=== PATIENT | male | born 1960 | race Caucasian/White ===

== ENCOUNTER → 2017-10-26 01:41 | Outpatient (CLI) | payer OTHER, SELFPAY ==
--- NOTE | 2017-10-26 09:31 | DI.REPORT_ITS ---
SYMPTOM/DIAGNOSIS: INGUINAL HERNIA, LEFT K40.90. LT GROIN PAIN, CONCERN FOR HERNIA SOFT TISSUE ULTRASOUND: 10/26 Soft tissue ultrasound was performed in the left inguinal region to evaluate the possibility of clinically suspected inguinal hernia. No inguinal hernia identified by ultrasound criteria. If there is a high clinical suspicion of hernia additional evaluation with CT could be considered.
== END ==
PROVIDERS: PCP Specialist/Technologist Athletic Trainer; Visit Provider Specialist/Technologist Athletic Trainer
DX: R10.32 Left lower quadrant pain (principal); K40.90 Unilateral inguinal hernia, without obstruction or gangrene, not specified as recurrent
CPT/HCPCS: 76857

== ENCOUNTER 2018-01-22 06:41 | Outpatient (CLI) | payer OTHER, SELFPAY ==
--- NOTE | 2018-01-22 06:45 | DI.US_ITS ---
SYMPTOMS/DIAGNOSIS: LEFT TESTICLE PAIN, ? SPERMATOCELE, N50.812 SCROTAL ULTRASOUND: The examination reveals a right testicle measuring 3.7 x 3.1 x 2.1 cm. There is normal arterial and venous blood flow and homogeneous echogenicity is noted in the testicle. There is normal color flow. The testicle is acoustically homogeneous. The right epididymis measures 1.6 x 2.5 x 1.3 cm, is acoustically homogeneous with normal color flow. The left testicle measures 3.2 x 3.0 x 2.3 cm. There is normal color flow and the testicle is acoustically homogeneous. The left epididymal head measures 1.7 x 2.8 x 1.1 cm and is homogeneous with normal color flow. Question multiple bilateral epididymal head cysts, the largest on the left side measuring 2.2 x 1.2 x 2.3 cm. In addition, there are multiple bilateral extratesticular calcifications, which likely represent scrotal pearls. The largest of these measures 7 mm in the right scrotal sac. Bilateral dilatation of the rete testes is demonstrated. There is a question regarding small bilateral hydroceles, left greater than right, the left hydrocele measuring 1.6 x 1.1 x 2.3 cm. SUMMARY: No evidence of testicular torsion. No evidence of a spermatocele. Please see the above discussion.
== END 2018-01-22 07:01 ==
PROVIDERS: PCP Specialist/Technologist Athletic Trainer; Visit Provider Nurse Practitioner Gerontology
DX: N50.812 Left testicular pain (principal); N50.3 Cyst of epididymis
CPT/HCPCS: 76870

== ENCOUNTER 2018-02-21 11:13 | Day surgery (SDC) | payer OTHER, SELFPAY ==
[2018-02-21] VITALS (7 sets, daily range): BP systolic 129–170; BP diastolic 90–99; PULSE 51–60; RESP 14–19; TEMP 36–37; O2SAT 95–98
[2018-02-21] MEDS: Lactated Ringers 1,000 ML 80 ML IV ×2 (12:07→13:20)
[2018-02-21] MEDS: Sulfameth/Trimeth DS TAB 1 TAB PO (12:07)
[2018-02-21] MEDS: Bupivacaine 0.25% Pres-Free 30 ML VIAL (13:27)
--- NOTE | 2018-02-21 13:35 | W.PM.DSUDISC ---
Discharge Plan Disposition Patient Disposition: HOME Condition: Stable Discharge Details Reason For Visit: spermatocele Attending Provider: Mark Domínguez Primary Care Provider: Salbador Hurtado Home Meds and New Rx's Prescriptions: No Action losartan 25 mg tablet 25 mg PO DAILY RF: 0 Discharge Instructions Additional Instructions: No straining/lifting over 10 - 20 pounds for 72 hours Fluff dressing with scrotal support May remove dressing in AM 12/ and shower/bathe but continue with scrotal support for 48 to 72 hours Ice pack to scrotum (bag of frozen peas works well) on 30 min off 30 min while awake for next 48 to 72 hours F/U appt to see me or LUNCHROOM WORKER in my office 3 to 4 weeks Activity:: see additional instructions Remove Dressings/Wound Care:: 24 hours Shower/Bathe:: 24 hours Diet:: As Tolerated Discharge Orders Discharge Orders: Discharge Order (Routine); Ordered 02/21/18 Ordered By: Mark Domínguez DS: Diagnosis Discharge Diagnosis (1) Spermatocele of epididymis, single: Status: Acute
--- NOTE | 2018-02-21 13:41 | PDOC.DSDIS_ITS ---
Discharge Plan Disposition Patient Disposition: HOME Condition: Stable Discharge Details Reason For Visit: spermatocele Attending Provider: Mark oDmínguez Primary Care Provider: Salbador Hurtado Home Meds and New Rx's Prescriptions: No Action losartan 25 mg tablet 25 mg PO DAILY RF: 0 Discharge Instructions Additional Instructions: No straining/lifting over 10 - 20 pounds for 72 hours Fluff dressing with scrotal support May remove dressing in AM 12/ and shower/bathe but continue with scrotal support for 48 to 72 hours Ice pack to scrotum (bag of frozen peas works well) on 30 min off 30 min while awake for next 48 to 72 hours F/U appt to see me or RN PRIVATE DUTY in my office 3 to 4 weeks Activity:: see additional instructions Remove Dressings/Wound Care:: 24 hours Shower/Bathe:: 24 hours Diet:: As Tolerated Discharge Orders Discharge Orders: Discharge Order (Routine); Ordered 02/21/18 Ordered By: Mark Domínguez DS: Diagnosis Discharge Diagnosis (1) Spermatocele of epididymis, single: Status: Acute
--- NOTE | 2018-02-21 18:11 | ROE_ITS ---
DATE OF OPERATION: February 21, 2018 PREOPERATIVE DIAGNOSIS: Left spermatocele. POSTOPERATIVE DIAGNOSIS: Left spermatocele. PROCEDURE: Left spermatocelectomy. SURGEON: Mark Domínguez M.D. ANESTHESIA: General. ESTIMATED BLOOD LOSS: Minimal. COMPLICATIONS: None. SPECIMENS: None. HISTORY: This is a 57-year-old gentleman who has a history of a scrotal mass. In fact, he has bilat eral scrotal masses but only the left side causes discomfort. He was evaluated with an ultrasound wh ich demonstrated these are cystic lesions attached to the epididymis. He presents for left-sided spe rmatocelectomy. OPERATIVE REPORT: The patient was brought to the Operating Room on 02/21/18. After successful induc tion of general anesthesia, he was placed in the supine position. His genitalia was prepped and drap ed. A right transverse scrotal incision was made along the direction of the rugae. The dartos muscle was then divided using a Bovie. The testis was delivered through the incision. There appeared to be a small hydrocele surrounding the testis. The tunica vaginalis was opened, expo sing the testis and the epididymis. At the head of the epididymis there was a 2 x 3 cm cystic lesion consistent with the spermatocele. W e dissected the spermatocele free from the epididymis and transected it at its attachment. Once this was accomplished, we cauterized the base of the epididymis and closed the adventitia back o uma the defect. Once hemostasis was obtained, we injected 0.25% Marcaine without epinephrine into the spermatic cord to help with a cord block. The testis was delivered back within the left hemiscrotum. The dartos mu scle was closed over top using a segment of running #4-0 Chromic. The skin was closed with simple in terrupted #4-0 Chromic sutures as well. A Fluff dressing was then applied. The patient tolerated the procedure well with no complications. cc: Salbador Hurtado PA-C
== END 2018-02-21 15:08 | disposition home or self-care (01) ==
PROVIDERS: PCP Specialist/Technologist Athletic Trainer; Visit Provider Urology
PROC: (CPT 54840; principal; 2018-02-21 14:00)
DX: N43.41 Spermatocele of epididymis, single (principal); N43.3 Hydrocele, unspecified
CPT/HCPCS: 54840; J2250; J3010

== ENCOUNTER 2018-07-16 15:52 | Outpatient (REF) | payer OTHER, SELFPAY ==
[2018-07-16 22:00] LABS: Anion Gap 9.2 mmol/L (3-11); BUN 14 mg/dL (7-18); CO2 24.8 mmol/L (21.0-32.0); CREATININE 1.22 mg/dL (0.70-1.30); Calcium 9.4 mg/dL (8.5-10.1); Chloride 103 mmol/L (98-107); Glucose 88 mg/dL (70-100); Potassium 4.2 mmol/L (3.5-5.1); Sodium 137 mmol/L (136-145)
== END 2018-07-16 16:12 ==
LOC: NCHCN 15:52
PROVIDERS: PCP Specialist/Technologist Athletic Trainer; Visit Provider Specialist/Technologist Athletic Trainer
DX: I10 Essential (primary) hypertension (principal)
CPT/HCPCS: 80048

== ENCOUNTER 2019-06-18 09:06 | Outpatient (REF) | payer OTHER, SELFPAY ==
[2019-06-18 20:45] LABS: Anion Gap 9.6 mmol/L (3-11); BUN 20 mg/dL (7-18); CO2 25.4 mmol/L (21.0-32.0); CREATININE 1.38 mg/dL (0.70-1.30); Calcium 9.3 mg/dL (8.5-10.1); Calculated LDL 157 mg/dL (<100); Chloride 103 mmol/L (98-107); Cholesterol 224 mg/dL (<200); Estimated GFR 52.92 (mL/min/1.73m2); Glucose 97 mg/dL (74-106); HDL Cholesterol 48 mg/dL (40-60); Potassium 4.7 mmol/L (3.5-5.1); Sodium 138 mmol/L (136-145); Triglyceride 97 mg/dL (<150)
== END 2019-06-18 09:26 ==
LOC: NCHCN 09:06
PROVIDERS: PCP Specialist/Technologist Athletic Trainer; Visit Provider Nurse Practitioner Family
DX: Z00.00 Encounter for general adult medical examination without abnormal findings (principal); I10 Essential (primary) hypertension
CPT/HCPCS: 80048; 80061

== ENCOUNTER 2019-08-20 15:20 | Outpatient (REF) | payer OTHER, SELFPAY ==
[2019-08-20 20:10] LABS: ALT 57 U/L (16-63); AST 28 U/L (15-37); HDL Cholesterol 48 mg/dL (40-60); LDL CHOLESTEROL 68 mg/dL (<100)
[2019-08-20 20:27] LABS: Creatine Kinase 119 U/L (39-308)
== END 2019-08-20 15:40 ==
LOC: NCHCN 15:20
PROVIDERS: PCP Nurse Practitioner Family; Visit Provider Nurse Practitioner Family
DX: E78.5 Hyperlipidemia, unspecified (principal)
CPT/HCPCS: 82550; 83721; 83718; 84450; 84460

== ENCOUNTER 2019-12-15 16:25 | Outpatient (REF) | payer OTHER, SELFPAY ==
[2019-12-15 19:50] LABS: ALT 50 U/L (16-63); AST 29 U/L (15-37); BUN 26 mg/dL (7-18); CREATININE 1.18 mg/dL (0.70-1.30); Calcium 9.3 mg/dL (8.5-10.1); Chloride 104 mmol/L (98-107); Glucose 113 mg/dL (74-106); HDL Cholesterol 60 mg/dL (40-60); LDL CHOLESTEROL 80 mg/dL (<100); Potassium 4.4 mmol/L (3.5-5.1); Sodium 140 mmol/L (136-145)
[2019-12-15 20:15] LABS: Creatine Kinase 282 U/L (39-308)
== END 2019-12-15 16:45 ==
LOC: NCHCN 16:25
PROVIDERS: PCP Nurse Practitioner Family; Visit Provider Nurse Practitioner Family
DX: Z00.00 Encounter for general adult medical examination without abnormal findings (principal); I10 Essential (primary) hypertension; E78.5 Hyperlipidemia, unspecified
CPT/HCPCS: 80048; 82550; 83721; 83718; 84450; 84460

== ENCOUNTER 2020-06-21 13:36 | Outpatient (REF) | payer OTHER, SELFPAY ==
[2020-06-21 15:15] LABS: Anion Gap 7.9 mmol/L (3-11); BUN 22 mg/dL (7-18); CO2 23.1 mmol/L (21.0-32.0); CREATININE 1.2 mg/dL (0.70-1.30); Calcium 9.2 mg/dL (8.5-10.1); Calculated LDL 101 mg/dL (<100); Chloride 107 mmol/L (98-107); Cholesterol 166 mg/dL (<200); Glucose 98 mg/dL (74-106); HDL Cholesterol 48 mg/dL (40-60); Potassium 4.5 mmol/L (3.5-5.1); Sodium 138 mmol/L (136-145); Triglyceride 86 mg/dL (<150)
== END 2020-06-21 13:37 | disposition home or self-care (01) ==
LOC: NCHCN 13:36
PROVIDERS: PCP Nurse Practitioner Family; Visit Provider Nurse Practitioner Family
DX: E78.5 Hyperlipidemia, unspecified (principal); I10 Essential (primary) hypertension
CPT/HCPCS: 80048; 80061

== ENCOUNTER 2021-01-03 11:12 | Outpatient (REF) | payer OTHER, SELFPAY ==
[2021-01-03 16:31] LABS: Anion Gap 7.7 mmol/L (3-11); BUN 19 mg/dL (7-18); CO2 28.3 mmol/L (21.0-32.0); CREATININE 1.2 mg/dL (0.70-1.30); Calcium 9.6 mg/dL (8.5-10.1); Chloride 106 mmol/L (98-107); Glucose 102 mg/dL (74-106); Magnesium 2.3 mg/dL (1.8-2.4); Potassium 4.8 mmol/L (3.5-5.1); Sodium 142 mmol/L (136-145); TSH 1.39 uIU/mL (0.36-3.74)
== END 2021-01-03 11:13 | disposition home or self-care (01) ==
LOC: NCHCN 11:12
PROVIDERS: PCP Nurse Practitioner Family; Visit Provider Nurse Practitioner Family
DX: I10 Essential (primary) hypertension (principal); K40.90 Unilateral inguinal hernia, without obstruction or gangrene, not specified as recurrent; R00.1 Bradycardia, unspecified
CPT/HCPCS: 80048; 83735; 84443

== ENCOUNTER 2021-01-03 11:43 | Outpatient (RCR) | payer OTHER, SELFPAY ==
--- NOTE | 2021-01-03 11:45 | HOLTER_ITS ---
APPROVED REPORT Conclusion This was a 48-hour Holter monitor reportedly ordered for bradycardia Predominant rhythm was sinus with an average heart rate of 59. Minimum was 41, maximum 124 There were rare ventricular ectopic beats. There were 2 ventricular triplets, very rare ventricular couplets There were very rare atrial premature beats There was one self-limited atrial run which lasted 5 beats There was no atrial fibrillation, no high-grade AV block, no pauses greater than 3 seconds There were no apparent patient symptoms
== END 2021-02-01 23:59 | disposition home or self-care (01) ==
LOC: RT 11:43
PROVIDERS: PCP Nurse Practitioner Family; Visit Provider Nurse Practitioner Family
DX: R00.1 Bradycardia, unspecified (principal)
CPT/HCPCS: 93225; 93226

== ENCOUNTER 2021-02-07 02:58 | Outpatient (CLI) | payer OTHER, SELFPAY ==
[2021-02-07 10:38] LABS: Source Nasal/Nares
[2021-02-07 17:06] LABS: COVID-19 PCR Negative (Negative)
== END 2021-02-07 02:59 | disposition home or self-care (01) ==
LOC: LBO 02:58
PROVIDERS: PCP Nurse Practitioner Family; Visit Provider Surgery
DX: Z20.822 Contact with and (suspected) exposure to COVID-19 (principal)
CPT/HCPCS: 87635

== ENCOUNTER 2021-02-09 06:15 | Day surgery (SDC) | payer OTHER, SELFPAY ==
[2021-02-09] VITALS (8 sets, daily range): BP systolic 88–133; BP diastolic 50–98; PULSE 54–62; RESP 13–16; TEMP 36.1–37; O2SAT 96–99; BMI 25.7
--- NOTE | 2021-02-09 06:32 | HPE_ITS ---
Date of service: 02/09/21 Time of Service: 06:32 Assessment and Plan Assessment and plan (1) Left inguinal hernia: Status: Acute Assessment and plan: Mr. Paez is a pleasant 60-year-old gentleman here t tavares to discuss a left inguinal hernia repair with mesh. We used a pamphlet with pictures to go over the procedure as well as the complications. We discussed postoperative restrictions and need for light duty at work if possible. I recommend taking at least 1 week off after surgery if possible. We discussed a nerve block for pain control. Risks, benefits and complications have been reviewed. Complications include but are not limited to bleeding, infection, injury to vas, vessels and nerves, injury to bowel and adverse reaction to medications. Questions were entertained and answered to their satisfaction and they wished to proceed. Proceed with left inguinal hernia repair with mesh History of Present Illness Narrative: Mr. Paez is a pleasant 60-year-old gentleman who is here today to discuss left inguinal hernia repair. He tells me that about 4 years ago he had some pain in the left inguinal area after doing some lifting. He felt that maybe he just had pulled some muscles as it did eventually go away. The pain contract came and went for the next 4 years. A year ago he had some increase in pain after lifting and again thought that maybe he just had pulled a muscle. Over the last month he has started to see swelling which goes away when he lays down or sits down. His left inguinal area feels sore at the end of the day. His job requires him to stand on a concrete floor for hours at a time. He did have surgery to his left testicle to have a spermatocele removed which did help with some of the discomfort that he was feeling in the testicle itself. He has not had any changes in bowel habits or nausea or vomiting. He had a right inguinal hernia repair as a child. He was approximately 5 years old at the time. His past medical history significant for tension and anemia which are both well controlled on medication. He has no history of MIs, strokes or any other cardiac history. No changes in his health since I last saw him. Review of Systems Cardiovascular Cardiovascular: Denies chest pain, Denies chest pain at rest, Denies irregular heart rhythm, Denies dyspnea and Denies dyspnea on exertion Respiratory Respiratory: Denies cough, Denies dyspnea and Denies dyspnea on exertion Gastrointestinal Gastrointestinal: Reports as per HPI Genitourinary Genitourinary: Denies dysuria, Denies urinary incontinence and Denies urinary urgency Endocrine Endocrine: Reports system reviewed and no additional complaints, except as documented Hematologic/Lymphatic Hematologic/Lymphatic: Denies easy bruising and Denies lymphadenopathy [facility] Active Problem List (Updated 02/09/21 @ 06:34 by Shayla Smith MD) Muscle strain (Acute) Left inguinal hernia (Acute) Medical History (Updated 02/09/21 @ 06:34 by Shayla Smith MD) Bradycardia Hyperlipidemia Hypertension Situational anxiety Spermatocele of epididymis, single s/p surgery Testicular pain Surgical History History of testicular surgery removal of left speramtocele S/P right inguinal hernia repair at age 5- no mesh Family History Brother Cancer lung cancer at age 21 Paternal Grandfather Lung cancer Maternal Grandfather Lung cancer Father Myocardial infarction Mother Stroke Social History Smoking/Tobacco Use Status: Never Smoking risk assessment performed?: Yes Alcohol Intake: current Alcohol Intake frequency: 0-2 drinks per day Drug use: Occasionally Substance use type: marijuana Household members: none Do you feel safe at home: Yes Additional Social history: lives alone Meds Allergies and Home Medications Allergies Allergy/AdvReac Type Severity Reaction Status Date / Time No Known Allergies Allergy Verified 02/07/21 14:29 Home Medications Medication Instructions Recorded Confirmed Type losartan 25 mg tablet 25 mg PO DAILY 01/21/18 02/07/21 History atorvastatin 20 mg tablet 20 mg PO DAILY 12/28/20 02/07/21 History multivitamin 1 tab PO DAILY 12/28/20 02/07/21 History Exam Const General: healthy appearing and comfortable Resp Effort & Inspection: normal respiratory effort Auscultation: clear to auscultation bilaterally Cardio Rate: regular rate Rhythm: regular rhythm Heart Sounds: no click, no gallops and no murmurs
--- NOTE | 2021-02-09 06:35 | W.PM.OP ---
Date of service: 02/09/21 Time of Service: 08:14 Operative Note Operative Note DATE OF PROCEDURE: 02/09/21 PRE-OP DIAGNOSIS: Left inguinal hernia POST-OP DIAGNOSIS: same (indirect) PROCEDURE: Left inguinal hernia repair with mesh SURGEON: Shayla Smith INSPECTOR PAWNS[employer]OP DETAIL: Montse Dong ANESTHESIA TYPE: General LMA/ETT (Yesy North CRNA) and Primary Nerve Block Refer to Anesthesia Record PATHOLOGY: none sent COMPLICATIONS: None Patient was transported to: PACU Patient's condition: stable Implants: Bard Mesh: LOT- [id number] REF- [id number] 2025-06-30 Indications: Mr. Paez is a pleasant 60-year-old gentleman here today to discuss a left inguinal hernia repair with mesh. We used a pamphlet with pictures to go over the procedure as well as the complications. We discussed postoperative restrictions and need for light duty at work if possible. I recommend taking at least 1 week off after surgery if possible. We discussed a nerve block for pain control. Risks, benefits and complications have been reviewed. Complications include but are not limited to bleeding, infection, injury to vas, vessels and nerves, injury to bowel and adverse reaction to medications. Questions were entertained and answered to their satisfaction and they wished to proceed. Proceed with left inguinal hernia repair with mesh Findings: Indirect hernia and small cord lipoma Procedure Description: After informed concent was obtained the patient was taken to the operating room and placed in a supine position. Monitors and SCDs were applied and a timeout was done. The patient's name, date of , procedure type, procedure site, allergies to medications, preoperative antibiotic, and DVT prophylaxis were all reviewed. Fire risk was assessed. Next anesthesia did a tap block on the left side under ultrasound guidance. Please see their separate dictation. Once anesthesia was done the abdomen was prepped and draped in a sterile surgical fashion. 0.25% Marcaine mixed with exparel was injected into the dermis in the left lower quadrant. An incision was made with a 10 blade in the left lower quadrant. Dissection was done with cautery through the subcutaneous tissues and Mila's fascia down to the external oblique fascia. The external ring was identified and the external oblique fascia was opened sharply through the external ring. The cut fascia was grasped with hemostats the cord structures were identified and a Xavier drain was placed around them. The ilioinguinal nerve was identified and cut. The cremasteric muscle was dissected away from the cord structures using both cautery and blunt dissection. A small hernia sac was identified and removed from the cord structures using blunt dissection. The hernia sac was suture ligated and amputated. The remnant was pushed back into the peritoneum. A flat piece of mesh was then attached to the lacunar ligament using a 2-0 Prolene double armed suture. The mesh was secured laterally and medially with a 2-0 Prolene, with a running suture. The tails of the mesh were wrapped around the cord structures effectively cinching down the internal ring. Once the mesh was secured the tissues were irrigated with some normal saline. No bleeding was identified. The external oblique fascia was reapproximated using 2-0 Vicryl running suture. The Mila's fascia was reapproximated using interrupted 3-0 Vicryl. The dermis was reapproximated with a running 4-0 Vicryl. The skin was cleaned and dried and skin affix was applied. The patient was woken up and taken back to recovery in stable condition. There were no immediate complications. Sponge, instrument and needle counts were correct at the end of the case x2.
--- NOTE | 2021-02-09 06:36 | PDOC.DSDIS_ITS ---
Discharge Plan Disposition Patient Disposition: HOME Condition: Good Discharge Details Reason For Visit: left inguinal hernia Attending Provider: Shayla Smith Primary Care Provider: Juliana Moise Home Meds and New Rx's Prescriptions: Continued losartan 25 mg tablet 25 mg PO DAILY RF: 0 atorvastatin 20 mg tablet 20 mg PO DAILY RF: 0 multivitamin Tablet 1 tab PO DAILY RF: 0 Discharge Instructions Additional Instructions: Activity at Home after surgery: 1. Make sure you walk outside at least 4 times per day 2. You should be able to climb a flight of stairs 3. No driving while in pain or taking pain medications 4. No strenuous activity or heavy lifting for 4 weeks Diet, Nutrition, & wound healin. Avoid alcohol until after you are recovered from your surgery 2. Make sure to eat plenty of lean protein (meat, fish, eggs, cottage cheese, beans) 3. Eat a variety of fruits and vegetables. Eat plenty of high fiber foods to avoid constipation. 4. Drink plenty of liquids to stay hydrated and avoid constipation Pain Medications: 1. Tylenol 650mg every 6 hours as needed and Ibuprofen 600 mg every 6 hours as needed. You may alternate between the 2 medications every 3 hours 2. If a narcotic has been prescribed take as directed only for breakthrough pain For Constipation: 1. Take Milk of Magnesia or MiraLax as needed for constipation Other: 1. You may shower daily. Do not scrub the incisions 2. Do not soak the incisions for 1 week 3. You may alternate ice and heat as needed for pain and swelling Wound Care: 1. Keep the incisions clean and dry Please call our office if you develop: 1. Fevers >101.5 2. Nausea or Vomiting 3. Worsening pain 4. Redness and thick discharge from the wounds If after hours please call the Hospital at and ask to speak to the on-call surgeon Stand Alone Forms: Anesthesia Discharge Inst., [place] (U) Referrals: Shayla Smith MD [ [facility] STAFF PHYSICIAN] - 02/22/21 8:15 am Activity:: see above Diet:: As Tolerated Discharge Orders Discharge Orders: Discharge Order (Routine); Ordered 02/09/21 Ordered By: Shayla Smith DS: Diagnosis Discharge Diagnosis (1) Left inguinal hernia: Status: Acute
--- NOTE | 2021-02-09 06:40 | W.ANESPRE ---
General Info Date of Service Date Performed: 02/09/21 Height: 5 ft 8 in Weight: 76.714 kg Body Mass Index (BMI): 25.7 Surgical Procedure: Operation Date: 02/09/21 07:40 Proposed Procedures Side Surgeon p Herniorrhaphy Inguinal Left Shayla Smith MD Meds Allergies and Home Medications Allergies Allergy/AdvReac Type Severity Reaction Status Date / Time No Known Allergies Allergy Verified 02/09/21 06:42 Home Medication Medication Instructions Recorded losartan 25 mg tablet 25 mg PO DAILY 01/21/18 atorvastatin 20 mg tablet 20 mg PO DAILY 12/28/20 multivitamin 1 tab PO DAILY 12/28/20 Current Visit Medications: Current Medications Generic Name Dose Route Start Last Admin Trade Name Freq PRN Reason Stop Dose Admin Acetaminophen 1,000 mg 02/09/21 06:00 Acetaminophen 500 Mg Tab PO 03/10/21 23:59 PREOP SAMM Celecoxib 200 mg 02/09/21 06:00 Celecoxib 200 Mg Cap PO 03/10/21 23:59 PREOP SAMM Gabapentin 600 mg 02/09/21 06:00 Gabapentin 300 Mg Cap PO 03/10/21 23:59 PREOP SAMM Ringer's Solution 1,000 mls @ 80 mls/hr 02/09/21 06:00 IV 03/10/21 23:59 INFUSION SAMM Cefazolin Sodium/Dextrose 2 gm in 50 mls @ 100 mls/hr 02/09/21 06:00 Ancef Duplex IVPB 03/10/21 23:59 PREOP SAMM Ondansetron HCl 4 mg/ Sodium 52 mls @ 200 mls/hr 02/09/21 06:37 Chloride IVPB Q6H PRN PRN IV Miscellaneous Supplies 1 each 02/09/21 06:00 Iv Access IV 03/10/21 23:59 DIRECTED SAMM Sodium Chloride 0 ml 02/09/21 06:00 Normal Saline Flush 10 Ml Syr IV 03/10/21 23:59 PRN PRN Sodium Chloride 0 ml 02/09/21 06:00 Normal Saline 10 Ml Vial IJ 03/10/21 23:59 DIRECTED PRN Sterile Water 0 ml 02/09/21 06:00 Water,Injection,Sterile 10 Ml Vial IJ 03/10/21 23:59 DIRECTED PRN Tramadol HCl 50 mg 02/09/21 06:37 Tramadol 50 Mg Tab PO Q6H PRN PRN Pain PFSH Active Problems Active Problems: Problem Status Onset Code Muscle strain T14.8XXA Left inguinal hernia K40.90 Medical History Active Problem List Muscle strain (Acute) Left inguinal hernia (Acute) Medical History Bradycardia Hyperlipidemia Hypertension Situational anxiety Spermatocele of epididymis, single s/p surgery Testicular pain Surgical History Surgical History History of testicular surgery removal of left speramtocele S/P right inguinal hernia repair at age 5- no mesh Tobacco Smoking/Tobacco Use Status: Never Alcohol Alcohol Intake: current Alcohol intake frequency: 0-2 drinks per day Substance Use Substance use: Occasionally Substance use type: marijuana Vital Signs and Lab Results Vital Signs Comment Vital Signs Comment:: Most Recent Vital Signs Temp Pulse Resp BP Pulse Ox 37.0 C 58 L 16 133/98 H 96 02/09/21 06:34 02/09/21 06:34 02/09/21 06:34 02/09/21 06:34 02/09/21 06:34 Lab Results Blood Type / Crossmatch: No Data to Display Complete Blood Count: No Data to Display Complete Metabolic Panel: No Data to Display Liver Function Panel: No Data to Display Coagulation Panel: No Data to Display Cardiac Panel: No Data to Display Arterial Blood Gas: No Data to Display Venous Blood Gas: No Data to Display Pancreas Panel: No Data to Display Thyroid Panel: No Data to Display Infectious Disease: Coronavirus (COVID-19)(PCR) Negative (Negative) 02/07/21 09:07 02/07/21 Coronavirus 2019 Source Nasal/Nares 02/07/21 09:07 02/07/21 Blood Cultures: No Data to Display Toxicology Panel: No Data to Display Anesthesia Assessment and Plan Anesthesia History Personal History: No History of Anesthesia Complications Family History: No Family History of Anesthesia Complications Exercise Tolerance Exercise Tolerance: Metabolic Equivalents>4 Pertinent Negatives Pertinent Negatives: No Symptoms of GERD, No Major Cardiovascular Symptoms or Complaints, No Major Pulmonary Symptoms or Complaints and No History of CVA/TIA Cardiac & Pulmonary Exam Cardiac Exam: Normal S1/S2 Heart Sounds Pulmonary Exam: Clear Bilateral Breath Sounds Implantable Cardiac Device Does patient have a Pacemaker or an ICD?: No Airway Exam Known Difficult Airway: No Mallampati Class: 2 Mouth Opening: Normal (> 3cm) Thyromental Distance: Greater than 3 cm Facial Hair: Full Little Neck Range of Motion: Full ROM Neck Circumference: Normal Teeth Condition: Normal Dentition and Loose or Chipped Airway Comments: #11 chipped, #34 broken ASA Classification ASA Score: ASA 2 Emergency Case?: No NPO Status NPO Status: NPO Clears >2 hours, Solids >8 hours Anesthesia Plan Resuscitation Status: Full Code Anesthesia Technique: General Anesthesia Airway Planned: LMA Pain Management: Surgeon and patient request nerve block Monitors Used: Standard Monitors
[2021-02-09] MEDS: Acetaminophen 500 MG TAB 1000 MG PO (06:50)
[2021-02-09] MEDS: Gabapentin 300 MG CAP 600 MG PO (06:50)
[2021-02-09] MEDS: Celecoxib 200 MG CAP PO (06:50)
[2021-02-09] MEDS: Lactated Ringers 1,000 ML 80 ML IV (06:59)
[2021-02-09] MEDS: ceFAZolin 2 GM/50 ML BAG IVPB (07:28)
[2021-02-09] MEDS: Bupivacaine LIPOSOME/PF 133 MG/10 ML VIAL IJ (07:45)
[2021-02-09] MEDS: Bupivacaine 0.25% Pres-Free 30 ML VIAL (07:45)
--- NOTE | 2021-02-09 07:50 | W.ANESNERVE ---
Nerve Block Single Injection Procedure Date and Time Date Performed: 02/09/21 Procedure Start: 07:34 Location Where Procedure Performed Procedure Location: Operating Room Procedure Stop: 07:40 Reason Performed: Postoperative Analgesia Requesting Provider: Shayla Smith Timeout Performed Timeout Performed: Yes Monitoring Used ECG, Blood Pressure, SpO2, ETCO2 and See EMR for corresponding vital signs Sterility Sterility: Hand Hygiene, Surgical Cap, Surgical Mask, Sterile Gloves and Chlorhexidine Sedation Given During Procedure Sedation Given (Indicate Dose Given): No Sedation given Patient Mental Status Patient Mental Status: Performed under general anesthesia Nerve Block 1st Nerve Block: Laterality: Left Block Type: TAP Unilateral Needle / Catheter Used: 100mm SonoPlex II Local Anesthetic Bolus (Indicate Dose Given): Injected in 3-5ml increments after negative blood aspiration, Bupivacaine 0.25% Dose:: 20 ml and Exparel Dose:: 10 ml Additives (Indicate Dose Given): None Ultrasound: Sterile probe cover and gel used Ultrasound Image Saved?: Yes Nerve Stimulator: Not Used Paresthesia: None Procedure Tolerated: No Complications Procedure Outcome: Successful Performed By: Re Kim Supervised By: Jacinta North
--- NOTE | 2021-02-09 09:36 | W.ANESPOSTOP ---
Postoperative Evaluation Date, Time and Location Date Performed: 02/09/21 Time Performed: 09:36 Patient Location: Day Surgery Unit Vital Signs Most Recent Imported Vital Signs: Most Recent Vital Signs Temp Pulse Resp BP Pulse Ox 36.5 C 55 L 16 121/90 98 02/09/21 09:22 02/09/21 09:22 02/09/21 09:22 02/09/21 09:22 02/09/21 09:22 Pain Score Most Recent Pain Score: Most Recent Pain Score Pain Level 3 02/09/21 09:22 Assessment Mental Status: Arousable with meaningful communication Airway and Respiratory Function: Patent airway with normal (patient baseline) respiratory exam Cardiovascular Function: Hemodynamically Stable Hydration Status: Adequately Hydrated Nausea & Vomiting: No Nausea or Vomiting Pain: Pain is tolerable per patient Peripheral Nerve Block: Regional nerve block not resolved at time of post operative discharge
== END 2021-02-09 10:36 | disposition home or self-care (01) ==
PROVIDERS: PCP Nurse Practitioner Family; Visit Provider Surgery
PROC: (CPT 49505; principal; 2021-02-09 07:30)
DX: K40.90 Unilateral inguinal hernia, without obstruction or gangrene, not specified as recurrent (principal); I10 Essential (primary) hypertension; E78.5 Hyperlipidemia, unspecified
CPT/HCPCS: 49505; 76942; C1781; J0690; J1100; J1885; J2001; J2250; J2405; J2704

== ENCOUNTER 2021-02-18 08:38 | Outpatient (CLI) | payer OTHER, SELFPAY ==
--- NOTE | 2021-02-18 08:30 | RT.EKG_ITS ---
APPROVED REPORT Exam: Resting ECG Reason for Exam: bradycardia Patient Location: O HR:54 bpm ECG Measurements Heart Rate 54 AXIS LA 186 P -4 QRSd 83 QRS -10 QT 419 T 50 QTc 398 Conclusion Sinus rhythm...normal P axis, V-rate 50- 99 RSR' in V1 or V2, probably normal variant...small R' only Normal Electrocardiogram
== END 2021-02-18 08:39 | disposition home or self-care (01) ==
LOC: DI.CARD 08:39
PROVIDERS: PCP Nurse Practitioner Family; Visit Provider Internal Medicine Cardiovascular Disease
DX: R00.1 Bradycardia, unspecified (principal)
CPT/HCPCS: 93010

== ENCOUNTER 2021-03-28 13:38 | Outpatient (REF) | payer OTHER, SELFPAY ==
[2021-03-28 12:49] LABS: Anion Gap 11.8 mmol/L (3-11); BUN 22 mg/dL (7-18); CO2 22.2 mmol/L (21.0-32.0); CREATININE 1.3 mg/dL (0.70-1.30); Calcium 9.3 mg/dL (8.5-10.1); Chloride 104 mmol/L (98-107); Glucose 100 mg/dL (74-106); Potassium 4.7 mmol/L (3.5-5.1); Sodium 138 mmol/L (136-145)
== END 2021-03-28 13:39 | disposition home or self-care (01) ==
LOC: NCHCN 13:38
PROVIDERS: PCP Nurse Practitioner Family; Visit Provider Nurse Practitioner Family
DX: I10 Essential (primary) hypertension (principal)
CPT/HCPCS: 80048

== ENCOUNTER 2021-04-14 09:01 | Outpatient (REF) | payer OTHER, SELFPAY ==
[2021-04-14 12:37] LABS: Anion Gap 6.7 mmol/L (3-11); BUN 21 mg/dL (7-18); CO2 23.3 mmol/L (21.0-32.0); CREATININE 1.1 mg/dL (0.70-1.30); Calcium 8.8 mg/dL (8.5-10.1); Chloride 107 mmol/L (98-107); Glucose 91 mg/dL (74-106); Potassium 4.5 mmol/L (3.5-5.1); Sodium 137 mmol/L (136-145)
== END 2021-04-14 09:02 | disposition home or self-care (01) ==
LOC: NCHCN 09:01
PROVIDERS: PCP Nurse Practitioner Family; Visit Provider Nurse Practitioner Family
DX: I10 Essential (primary) hypertension (principal)
CPT/HCPCS: 80048

== ENCOUNTER 2021-07-01 08:09 | Outpatient (REF) | payer OTHER, SELFPAY ==
[2021-07-01 15:20] LABS: ALT 31 U/L (16-63); AST 18 U/L (15-37); HDL Cholesterol 59 mg/dL (40-60); LDL CHOLESTEROL 148 mg/dL (<100)
[2021-07-01 15:38] LABS: Creatine Kinase 129 U/L (39-308)
== END 2021-07-01 08:10 | disposition home or self-care (01) ==
LOC: NCHCN 08:09
PROVIDERS: PCP Nurse Practitioner Family; Visit Provider Nurse Practitioner Family
DX: I10 Essential (primary) hypertension (principal); E78.5 Hyperlipidemia, unspecified
CPT/HCPCS: 82550; 83721; 83718; 84450; 84460

== ENCOUNTER 2021-09-12 17:50 | Outpatient (REF) | payer OTHER, SELFPAY ==
[2021-09-12 15:50] LABS: Anion Gap 8.6 mmol/L (3-11); BUN 24 mg/dL (7-18); CO2 26.4 mmol/L (21.0-32.0); CREATININE 1.3 mg/dL (0.70-1.30); Calcium 9.6 mg/dL (8.5-10.1); Chloride 103 mmol/L (98-107); Estimated GFR 56.31 (mL/min/1.73m2); Glucose 102 mg/dL (74-106); Magnesium 2.2 mg/dL (1.8-2.4); Potassium 4.4 mmol/L (3.5-5.1); Sodium 138 mmol/L (136-145)
== END 2021-09-12 17:51 | disposition home or self-care (01) ==
LOC: NCHCN 17:50
PROVIDERS: PCP Nurse Practitioner Family; Visit Provider Nurse Practitioner Family
DX: E78.5 Hyperlipidemia, unspecified (principal); I10 Essential (primary) hypertension; R25.2 Cramp and spasm
CPT/HCPCS: 80048; 83735

== ENCOUNTER 2021-11-08 18:26 | Outpatient (REF) | payer OTHER, SELFPAY ==
[2021-11-08 16:02] LABS: ALT 41 U/L (16-63); AST 28 U/L (15-37); HDL Cholesterol 57 mg/dL (40-60); LDL CHOLESTEROL 77 mg/dL (<100)
[2021-11-08 16:43] LABS: Creatine Kinase 135 U/L (39-308)
== END 2021-11-08 18:27 | disposition home or self-care (01) ==
LOC: NCHCN 18:26
PROVIDERS: PCP Nurse Practitioner Family; Visit Provider Nurse Practitioner Family
DX: I10 Essential (primary) hypertension (principal); E78.5 Hyperlipidemia, unspecified
CPT/HCPCS: 82550; 83721; 83718; 84450; 84460

== ENCOUNTER 2022-09-11 02:38 | Outpatient (CLI) | payer OTHER, SELFPAY ==
[2022-09-13 11:10] LABS: Lyme Ab w Rflx to Lyme Confirm Negative (Negative)
[2022-09-15 16:59] LABS: Anaplasma phagocytophilum Negative (Negative); B. miyamotoi PCR Negative (Negative); Babesia divergens/MO-1 Negative (Negative); Babesia duncani Negative (Negative); Babesia microti Negative (Negative); Ehrlichia chaffeensis Negative (Negative); Ehrlichia ewingii/canis Negative (Negative); Ehrlichia muris eauclairensis Negative (Negative)
== END 2022-09-11 02:39 | disposition home or self-care (01) ==
LOC: LBO 02:38
PROVIDERS: PCP Nurse Practitioner Family; Visit Provider Nurse Practitioner Family
DX: W57.XXXA Bitten or stung by nonvenomous insect and other nonvenomous arthropods, initial encounter (principal)
CPT/HCPCS: 36415; 87798; 86618

== ENCOUNTER 2022-11-16 10:17 | Outpatient (REF) | payer OTHER, SELFPAY ==
[2022-11-16 16:42] LABS: ALT 39 U/L (16-63); AST 28 U/L (15-37); Albumin 3.9 g/dL (3.4-5.0); Alkaline Phosphatase 64 U/L (46-116); Anion Gap 8.5 mmol/L (3-11); BUN 18 mg/dL (7-18); Bilirubin, Total 0.6 mg/dL (0.2-1.0); CO2 25.5 mmol/L (21.0-32.0); CREATININE 1.3 mg/dL (0.70-1.30); Calcium 9.1 mg/dL (8.5-10.1); Calculated LDL 60 mg/dL (<100); Chloride 103 mmol/L (98-107); Cholesterol 123 mg/dL (<200); Glucose 95 mg/dL (74-106); HDL Cholesterol 51 mg/dL (40-60); Potassium 4.7 mmol/L (3.5-5.1); Sodium 137 mmol/L (136-145); Total Protein 7.2 g/dL (6.4-8.2); Triglyceride 61 mg/dL (<150)
[2022-11-16 16:54] LABS: Creatine Kinase 102 U/L (39-308)
== END 2022-11-16 10:18 | disposition home or self-care (01) ==
LOC: NCHCN 10:17
PROVIDERS: PCP Nurse Practitioner Family; Visit Provider Nurse Practitioner Family
DX: Z00.00 Encounter for general adult medical examination without abnormal findings (principal); E78.5 Hyperlipidemia, unspecified
CPT/HCPCS: 80053; 80061; 82550

== ENCOUNTER 2023-05-31 14:17 | Outpatient (REF) | payer OTHER, SELFPAY ==
[2023-05-31 16:53] LABS: BUN 17 mg/dL (7-18); CREATININE 1.3 mg/dL (0.70-1.30); Calcium 9.3 mg/dL (8.5-10.1); Chloride 106 mmol/L (98-107); Estimated GFR 62.11 (mL/min/1.73m2); Glucose 106 mg/dL (74-106); Potassium 4.6 mmol/L (3.5-5.1); Sodium 141 mmol/L (136-145)
== END 2023-05-31 14:18 | disposition home or self-care (01) ==
LOC: NCHCN 14:17
PROVIDERS: PCP Nurse Practitioner Family; Visit Provider Nurse Practitioner Family
DX: I10 Essential (primary) hypertension (principal)
CPT/HCPCS: 80048

== ENCOUNTER 2023-06-26 08:49 | Day surgery (SDC) | payer OTHER, SELFPAY ==
--- NOTE | 2023-06-25 22:02 | W.PM.HP.N ---
Date of service: 06/26/23 Time of Service: 09:30 Assessment and Plan Assessment and plan (1) Lipoma: Status: Acute Assessment and plan: Informed consent was obtained prior to beginning the procedure. The area was marked and doubled checked/ID?ed with the pt. PAUSE for the CAUSE completed. The risks of lesion removal include but are not limited to: bleeding, infection, scarring, reoccurrence, and the need for removal of more tissue, and complications of anesthesia. (2) Situational anxiety: (3) Hypertension: (4) Bradycardia: (5) Hyperlipidemia: (6) Sleeping difficulty: History of Present Illness Narrative: Patient is here today for lipoma removal left ant shoulder. They not having any chest pain or shortness of breath, currently.? They are not experiencing any fever or chills.? They deny any productive cough or upper respiratory tract infection signs or symptoms.? They are not having abdominal pain, or nausea and vomiting.? They have not had any changes in medications, past medical history or past surgical history since previously being seen in the office. They have not had any accidents or have been in the ER since the clinic pre-operative evaluation. ??I reviewed the procedure with the patient today, including risks and benefits of the procedure, and what they could expect at home for recovery.? All questions are answered to the patient?s satisfaction today, and they are stable to proceed with the proposed procedure. clinic visit 05/24/23 Assessment & Plan (1) Lipoma: Because of the size of the lesion, we will plan on doing this over in the OR under local It would leave a scar. He will have stitches and in need to come in and have them removed. Risks include bleeding, infection, scarring, reaction to medications, poor cosmesis, recurrence. We will send the lesion to pathology. Patient did have some1 still drive him home. Intake the rest of the day off work. No lifting over 10 pounds with the left arm for 3 days This document was created with voice activated software and may contain errors. 15 mins spent with the patient today. (2) Family history of ischemic heart disease: (3) Situational anxiety: (4) Hypertension: (5) Hyperlipidemia: (6) Sleeping difficulty: Plan Detail Total time on date of encounter, (bqai-ci-cast and non [id number]) (minutes): 15 Time was spent: reviewing prior notes and diagnostics, providing direct patient care, ordering diagnostics and/or referrals, documenting today's visit, updating the EMR, coordinating care and other HPI RN: Pt has area on left anterior shoulder that he feels has gotten bigger, now irritates when he uses his backpack. Pt states if he shovels for a period of time, it is uncomfortable. PMx, PSx, medications, allergies, ?and social Hx are reviewed and updated in [employer] Any imagining associated with this visit was reviewed. Indication The patient is seen at the request of the PCP. The pt presents for lesion removal. We have discussed this procedure, including option of not performing surgery, technique of surgery and potential for: bleeding/infection/scarring/need for removal of more tissue/ reaction to local anethesetics or sutures material/poor cosmesis/reoccurrence, and post-procedural care that is required, as well as a multi-modality pain plan.? Post-procedural pain/swelling/bruising is normal. Patient is able to do post procedural dressing changes and understands what is expected. OBJECTIVE: Patient appears well. Vitals are normal. The patient has no allergies to lidocaine or suture material. The patient not on any blood thinners.? They are not on steroids are any other immunosuppressants. Informed consent was obtained prior to beginning the procedure. T. The risks of lesion removal include but are not limited to: bleeding, infection, scarring, reoccurrence, and the need for removal of more tissue, and complications of anesthesia. Location: ASSESSMENT: 2x1 feels like a lipoma. Borderlines are soft Pt doesn't have much subcutaneous tissue, feels as if it is tacked down to the fascia. Review of Systems All systems reviewed & are unremarkable except as noted in HPI and below PFSH All Active Problems Lipoma (Acute) Family history of ischemic heart disease (Acute) Muscle strain (Acute) Medical History Sleeping difficulty Testicular pain Bradycardia Situational anxiety Hyperlipidemia Hypertension Left inguinal hernia Spermatocele of epididymis, single s/p surgery Surgical History S/P left inguinal hernia repair (~12/08/21) S/P right inguinal hernia repair at age 5- no mesh History of testicular surgery removal of left speramtocele Family History Brother Cancer lung cancer at age 21 Paternal Grandfather Lung cancer Maternal Grandfather Lung cancer Father Myocardial infarction Mother Stroke Social History Smoking/Tobacco Use Status: Current every day Tobacco Type: smokeless tobacco Smoking risk assessment performed?: Yes Alcohol Intake: current Alcohol Intake frequency: a few times a week Alcohol type: beer Drug use: Occasionally Substance use type: marijuana Details: smoked marijuana 1 week ago. Chewed tobacco 06/25/23 Household members: none Housing: house Do you feel safe at home: Yes Additional Social history: lives alone Meds Allergies and Home Medications Allergies Allergy/AdvReac Type Severity Reaction Status Date / Time No Known Allergies Allergy Verified 06/26/23 09:18 Home Medications Medication Instructions Recorded Confirmed Type losartan 25 mg tablet 25 mg PO DAILY 01/21/18 06/26/23 History atorvastatin 20 mg tablet 20 mg PO DAILY 12/28/20 06/26/23 History multivitamin 1 tab PO DAILY 12/28/20 06/26/23 History Exam Narrative Exam Narrative: PHYSICAL EXAM GENERAL APPEARANCE: Alert, healthy appearance, oriented, x 3,? in no acute distress HYDRATION: Well hydrated HEAD, EYES, EARS, NECK, THROAT: Head is normocephalic, pupils equal, round, reactive to light and accommodation, ocular movement intact, sclera clear and no jaundice. ?Dentition intact. LUNGS: normal respiration/normal chest excursion. ?Clear to auscultation bilaterally. ? ?HEART: Regular rate and rhythm. no murmurs EXTREMITY: left anterior shoulder x4 cm lipoma w/ well circumscribed borders ABDOMEN: soft and non-tender to palpation.? Normal bowel sounds.? Const General: cooperative, healthy appearing, comfortable and no acute distress Nutritional Appearance: average body habitus Other: PHYSICAL EXAM GENERAL APPEARANCE: Alert, healthy appearance, oriented, x 3,? in no acute distress HYDRATION: Well hydrated HEAD, EYES, EARS, NECK, THROAT: Head is normocephalic, pupils equal, round, reactive to light and accommodation, ocular movement intact, sclera clear and no jaundice. ?Dentition intact. LUNGS: normal respiration/normal chest excursion. ?Clear to auscultation bilaterally. ?No wheeze. ?HEART: Regular rate and rhythm. no murmurs EXTREMITY: -see HPI ABDOMEN: soft and non-tender to palpation.? Normal bowel sounds.? Time Spent Time spent with Patient: <40 minutes Time was spent: preparing to see the patient(eg.review tests), obtaining and/or reviewing separately otained hiistory, ordering medications,tests, procedures, referring, communicating with other health respiratory care faculty, indepentently interpreting results, counseling the patient and care coordination
--- NOTE | 2023-06-25 22:05 | W.PM.DSUDISC ---
Date of service: 06/26/23 Time of Service: 10:23 Discharge Plan Disposition Patient Disposition: Home Condition: Good Discharge Details Reason For Visit: removal lipoma Attending Provider: Shea Mobley Primary Care Provider: Juliana Moise Home Meds and New Rx's Prescriptions: No Action losartan 25 mg tablet 25 mg PO DAILY atorvastatin 20 mg tablet 20 mg PO DAILY multivitamin Tablet 1 tab PO DAILY Discharge Instructions Additional Instructions: Caring for Your Incision Pain Control Use ice!? Ice keeps the swelling down and swelling is what causes pain.? Never apply ice directly to the skin.? Wrap it in a towel or cloth.? Apply ice 20 minutes on and 20 minutes off for pain control.? Use as needed. Take tylenol 500 mg by mouth with food every 4 hours as needed for pain. Or ibuprofen 600 mg by mouth with food every 6 hours as needed for pain.? Do not take tylenol if you have a history of heavy drinking , hepatits C or liver problems.? Do not take ibuprofen if you have a history of stomach ulcers/problems, bleeding problem or kidney issues. Home care ? Always wash your hands before touching your incision. ? Keep the incision clean, dry, and out of water, keep the incision out of water. ? Do not to pick at the scabs. Scabs help protect the wound. ? You can take a shower in 24 hours and wash the incision with soap and water. Pat dry/don?t scrub. No swimming or hot tubs for two weeks. ? Pat stitches dry if they get wet. Don't rub. ? Check the incision site daily for pain, redness, drainage, swelling, or separation of the incision edges. ? If there is a bandage (dressing) over the incision, change this every 24 hours as instructed by your provider. Using clean hands change the dressing as directed by your healthcare provider. Always wash your hands before changing your dressing. ? Make sure any clothing that touches the incision is loose-fitting. This will prevent rubbing. ? Try to avoid from rough play, contact sports, or physical activities for two weeks. This can put you at risk of opening the incision. ? Make sure you avoid doing things that could cause dirt or sweat to get in or on the incision. As your incision heals, the skin may appear pink or red. It may also feel slightly bumpy or raised. This is called a healing ridge. Over time, the color should fade and the raised skin will become less noticeable. ? Follow-up care -Cesar or sutures generally need to be removed in 7-10 days.?? Be sure to return for suture or staple removal as directed. ? When to seek medical care ? More pain, redness, swelling, bleeding, or foul-smelling discharge around the incision area ? Fever of 101?F (38.3?C) or higher, or as directed by your child's healthcare provider ? Shaking chills ? Vomiting or nausea that doesn?t go away ? Numbness, coldness, or tingling around the incision area, or changes in skin color ? Opening of the sutures or wound Stitches or cesar come apart or fall out or surgical tape falls off before 7 days, or as directed by your healthcare provider [facility] to make appt w/ Dr. Mobley in 10 days. [phone] Stand Alone Forms: Che Morin (U) Referrals: Shea Mobley, [OSTEOPATHIC DOCTOR] - 07/05/23 2:30 pm Activity:: see above Remove Dressings/Wound Care:: 24 hours Shower/Bathe:: 24 hours Diet:: As Tolerated Discharge Orders Discharge Orders: Discharge Order (Routine); Ordered 06/26/23 Ordered By: Shea Mobley DS: Diagnosis Discharge Diagnosis (1) Lipoma: Status: Acute Asessment and Plan: The patient is doing well post-op from their lipoma surgery.? They are having no nausea or vomiting. They are tolerating liquids and a snack. The pt is not having any chest pain or SOB.? Their pain is adequately controlled. They have been able to urinate.? ?HEENT:? no eye pain/drainage/redness/swelling. Mild sore throat ?Cardio- NSR, no chest pain, BP stable- see VS record ?Pulm: no sob or productive cough. No hemoptysis ?Incision- dressing is c/d/i w/ no excessive bleeding or drainage ?I discussed with the patient the findings at the time of surgery and the patient?s progress. ?We reviewed expectations at home; what the patient could expect for recovery time, and in the post-operative period.? We discussed the importance of walking to avoid blood clots and pneumonia.? We discussed and reviewed the patient's post-operative wound care and dressing needs.?? We reviewed their step-castro pain management plan, Rx called to the pharmacy of their choice.? We reviewed activity and limitations-see discharge instructions. We reviewed warning signs, and when to seek medical attention- see d/c instructions.?? Patient was given a postoperative follow-up appointment. Patient verbalized understanding of their postoperative instructions, how do to take care of themselves and their incision, and the pain management plan. Please see discharge instructions.? d (2) Situational anxiety: (3) Hypertension: (4) Bradycardia: (5) Hyperlipidemia: (6) Sleeping difficulty:
[2023-06-26 09:05] VITALS: BP 163/99; PULSE 55; RESP 16; TEMP 36.6; O2SAT 99
[2023-06-26] MEDS: Gabapentin 300 MG CAP 600 MG PO (09:25)
[2023-06-26] MEDS: Acetaminophen 500 MG TAB 1000 MG PO (09:26)
[2023-06-26] MEDS: Lidocaine 1% Multi-Dose W/EPI 1/100,000 50 ML VIAL ×2 (10:11→10:15)
[2023-06-26] MEDS: Sodium Bicarbonate 50 MEQ/50 ML VIAL (10:12)
--- NOTE | 2023-06-26 10:15 | SOFT_PTH ---
PATIENT: Josi Paez LOC: [facility] U#:[id number] AGE/SX: 63/M ROOM: RE06/26/[address]: Shea Mobley : 1960 BED: DIS: 06/26/2023 SPEC #: [id number] RECD: 06/26/23 12:19 STATUS: AMINTA REQ #: [id number] YARELY: 06/26/23 10:[address]: Shea Mobley DEPT: Surgical Specimen RECD BY: Cathy Ramirez ENTERED: 06/26/23 12:20 SP TYPE: SOFT OTHR DR: Juliana Moise Tissues: 1 - SOFT TISSUE MISC (INC. LIPOMA) Procedures: GROSS AND MICRO LEVEL 3 Comments: [id number]
--- NOTE | 2023-06-26 10:26 | W.PM.OP ---
Date of service: 06/26/23 Time of Service: 10:56 Operative Note Operative Note DATE OF PROCEDURE: 06/26/23 PRE-OP DIAGNOSIS: Left anterior shoulder lipoma POST-OP DIAGNOSIS: same PROCEDURE: Excision of lipoma SURGEON: Shea Mobley BALLPOINT PEN CARTRIDGE TESTER: Montse Dong ANESTHESIA TYPE: Local By Surgeon Refer to Anesthesia Record ESTIMATED BLOOD LOSS: 3 PATHOLOGY: other COMPLICATIONS: None Patient was transported to: same day Patient's condition: stable Procedure Description: Informed consent was obtained prior to beginning the procedure. The area was marked and doubled checked/ID?ed with the pt. PAUSE for the CAUSE completed. The risks of lesion removal include but are not limited to: bleeding, infection, scarring, reoccurrence, and the need for removal of more tissue, and complications of anesthesia. After informed consent was obtained, using Chloroprep for cleansing and 1% Buffered Lidocaine for anesthetic; using sterile technique, PROCEDURE:_Excision of lipoma was performed. The lesion is 4x4x2_cm in size. The incision was _2 Cm long. No drain is needed. Subcutaneous tissues approximated with 3-0 Vicryl. The incision is closed w/ interrupted sutures of 4-0 prolene. sterile compression dressing is applied, and wound care instructions provided. The procedure was well tolerated without complications. Plan: The patient will follow up in 10 days for suture removal and review of pathology. If there is any bleeding/redness/drainage/swelling/pain or tenderness- call the clinic. Patient was given instructions in wound care, activity, warning signs, appointment for follow up. If the patient has any questions or concerns, should call our clinic or go to ER/urgent care after hours. Patient expressed understanding in directions for care and was given a written copy of instructions. Pt tolerated the procedure well without complications Patient was given instruction in activity restrictions, wound care and dressing changes. Medication usage, diet, warning signs to look for (and what to do if they occur), and an appointment for follow-up.
[2023-06-26 10:33] VITALS: BP 146/95; PULSE 49; RESP 16; TEMP 36.2; O2SAT 96
[2023-06-26] MEDS: Ibuprofen 600 MG TAB PO (10:47)
[2023-06-26 11:10] VITALS: BP 148/96; PULSE 54; RESP 16; TEMP 36.4; O2SAT 98
== END 2023-06-26 11:16 | disposition home or self-care (01) ==
LOC: SUR 08:50
PROVIDERS: PCP Nurse Practitioner Family; Visit Provider Surgery
PROC: (CPT 11404; principal; 2023-06-26 10:00)
DX: D17.22 Benign lipomatous neoplasm of skin and subcutaneous tissue of left arm (principal); E78.5 Hyperlipidemia, unspecified; I10 Essential (primary) hypertension
CPT/HCPCS: 11404; 12031; 88304; J2004

== ENCOUNTER 2023-11-14 18:02 | Outpatient (REF) | payer OTHER, SELFPAY ==
[2023-11-14 20:14] LABS: ALT 37 U/L (16-63); AST 34 U/L (15-37); Albumin 4.1 g/dL (3.4-5.0); Alkaline Phosphatase 70 U/L (46-116); Anion Gap 8.7 mmol/L (3-11); BUN 18 mg/dL (7-18); Bilirubin, Total 0.66 mg/dL (0.2-1.0); CO2 24.3 mmol/L (21.0-32.0); CREATININE 1.2 mg/dL (0.70-1.30); Calcium 9.8 mg/dL (8.5-10.1); Chloride 106 mmol/L (98-107); Estimated GFR 68.38 (mL/min/1.73m2); Glucose 91 mg/dL (74-106); Potassium 4.5 mmol/L (3.5-5.1); Sodium 139 mmol/L (136-145); Total Protein 7.4 g/dL (6.4-8.2)
[2023-11-14 20:16] LABS: Hemoglobin A1C 5.9 % (<5.7)
[2023-11-15 19:24] LABS: Hepatitis C Ab w Rflx HCV PCR Negative (Negative)
[2023-11-15 19:38] LABS: HIV-1/2 Ag & Ab Screen Negative (Negative)
== END 2023-11-14 18:03 | disposition home or self-care (01) ==
LOC: NCHCN 18:02
PROVIDERS: PCP Nurse Practitioner Family; Visit Provider Nurse Practitioner Family
DX: Z00.00 Encounter for general adult medical examination without abnormal findings (principal); I10 Essential (primary) hypertension; Z13.1 Encounter for screening for diabetes mellitus; Z11.4 Encounter for screening for human immunodeficiency virus [HIV]; Z11.59 Encounter for screening for other viral diseases
CPT/HCPCS: 80053; 86803; 87389; 83036

== ENCOUNTER 2023-12-24 18:19 | Outpatient (REF) | payer OTHER, SELFPAY ==
[2023-12-24 19:52] LABS: Anion Gap 10.6 mmol/L (3-11); BUN 16 mg/dL (7-18); CO2 25.4 mmol/L (21.0-32.0); CREATININE 1.2 mg/dL (0.70-1.30); Calcium 9.6 mg/dL (8.5-10.1); Chloride 106 mmol/L (98-107); Estimated GFR 68.38 (mL/min/1.73m2); Glucose 99 mg/dL (74-106); Potassium 4.3 mmol/L (3.5-5.1); Sodium 142 mmol/L (136-145)
== END 2023-12-24 18:20 | disposition home or self-care (01) ==
LOC: NCHCN 18:19
PROVIDERS: PCP Nurse Practitioner Family; Visit Provider Nurse Practitioner Family
DX: I10 Essential (primary) hypertension (principal)
CPT/HCPCS: 80048

== ENCOUNTER 2025-01-12 13:58 | Outpatient (REF) | payer OTHER, SELFPAY ==
[2025-01-12 16:14] LABS: Hemoglobin A1C 5.8 % (<5.7)
[2025-01-12 16:15] LABS: ALT 57 U/L (16-63); AST 31 U/L (15-37); Albumin 4.3 g/dL (3.4-5.0); Alkaline Phosphatase 71 U/L (46-116); Anion Gap 12.0 mmol/L (3-11); BUN 20 mg/dL (7-18); Bilirubin, Total 0.9 mg/dL (0.2-1.0); CO2 24.0 mmol/L (21.0-32.0); Calcium 9.4 mg/dL (8.5-10.1); Chloride 102 mmol/L (98-107); Glucose 97 mg/dL (74-106); Potassium 4.0 mmol/L (3.5-5.1); Sodium 138 mmol/L (136-145); Total Protein 7.4 g/dL (6.4-8.2)
== END 2025-01-12 13:59 | disposition home or self-care (01) ==
LOC: NCHCN 13:58
PROVIDERS: Visit Provider Nurse Practitioner Family
DX: R73.03 Prediabetes (principal)
CPT/HCPCS: 80053; 83036

== ENCOUNTER 2025-01-14 03:08 | Emergency (ER) | payer SELFPAY ==
[2025-01-14 03:11] VITALS: BP 138/94; PULSE 66; RESP 18; TEMP 36.2; O2SAT 96
[2025-01-14] MEDS: Lidocaine 1% Pres-Free W/EPI 1/200,000 30 ML VIAL (03:26)
--- NOTE | 2025-01-14 03:34 | W.ED.GENAD ---
Discharge Plan Disposition Patient Disposition: Home Condition: Good Discharge Details Clinical Impression: Laceration of lip Primary Care Provider: Unknown,Unknown ED Provider: Bryce Carvajal Home Meds and New Rx's Prescriptions: No Action losartan 25 mg tablet 25 mg PO DAILY atorvastatin 20 mg tablet 20 mg PO DAILY multivitamin Tablet 1 tab PO DAILY Discharge Instructions Instructions: Laceration Repair With Stitches ED Additional Instructions: Please keep the area clean and dry. Monitor closely for any redness, drainage or discharge. Absorbable sutures will come out on their own in 10 to 12 days. If they have not you can gently rub warm soapy water on the area to help them come off. FIf you come back to the emergency department here it will be free of charge for the suture removal. For long-term scar cosmesis, please make sure to avoid any sun to the area for the next year. Apply moisturizer or vitamin E to the area twice daily for the next 12 months for the best chance of wound/scar medication. Please take a daily multivitamin as well as this can help in wound healing. If you notice any worsening of your symptoms, or any new symptoms such as vomiting, diarrhea, fever, chills, shortness of breath, chest pain, numbness, weakness, or fainting , please return immediately to the emergency department for reevaluation. Please follow up with your primary care provider as soon as possible for reassessment and reevaluation. As always, it was a pleasure participating in your medical care today. Stand Alone Forms: Portal Information HPI General Date/Time Provider Initiated Documentation: 01/14/25 03:15. HPI Narrative: This is a pleasant 64-year-old male whose tetanus is up-to-date who presents today for evaluation of laceration. The patient was at work when something fell from an upper shelf that he was pulling off and it hit him in his upper lip. He developed a laceration and came to the ER for further assessment. No other trauma to the rest of his face. No loss of consciousness, no blood thinner use. Related Data Home Medications Medication Instructions Recorded Confirmed losartan 25 mg tablet 25 mg PO DAILY 01/21/18 01/14/25 atorvastatin 20 mg tablet 20 mg PO DAILY 12/28/20 01/14/25 multivitamin 1 tab PO DAILY 12/28/20 01/14/25 Allergies Allergy/AdvReac Type Severity Reaction Status Date / Time No Known Allergies Allergy Verified 07/19/23 09:37 General Stated Complaint: Laceration BLAIR: 4 Exam Narrative Exam Narrative: 1.Const: Well-nourished, Well-developed, appearing stated age 2.Eyes: PERRL, no conjunctival injection, and symmetrical lids. 3.ENT: Atraumatic external nose and ears. Moist MM. Neck: Symmetric, trachea midline, No thyromegaly. Patient's upper lip demonstrates a 2 cm linear laceration just above the vermilion border midline of the face. No through and through. No active hemorrhage. 4.CVS: +S1/S2, Peripheral pulses 2+ and equal in all extremities. Brisk capillary refill in all extremities. 5.RESP: Unlabored respiratory effort. Clear to auscultation bilaterally. No wheezes rales or rhonchi 6.GI: Soft, Nontender/Nondistended, No hepatosplenomegaly. No guarding or rebound. 7.MSK: Normocephalic/Atraumatic, Extremities w/o deformity or ttp No cyanosis or clubbing, Normal movement of all extremities 8.Skin: Warm, Dry. No rashes or lesions. 9.Neuro: insurance claim approver II-XII grossly intact. Sensation grossly intact, no focal neurologic deficits. 10.Psych: (AAO) x3. Appropriate mood and affect Course Vital Signs Vital signs: Vital Signs Temperature 36.2 C L 01/14/25 03:11 Pulse 66 01/14/25 03:11 Respiratory Rate 18 01/14/25 03:11 Blood Pressure 138/94 H 01/14/25 03:11 Pulse Oximetry 96 01/14/25 03:11 Temperature 36.2 C L 01/14/25 03:11 Temperature Source Tympanic 01/14/25 03:11 Pulse 66 01/14/25 03:11 Respiratory Rate 18 01/14/25 03:11 Blood Pressure 138/94 H 01/14/25 03:11 Blood Pressure Position Sitting 01/14/25 03:11 Pulse Oximetry 96 01/14/25 03:11 Oxygen Delivery Method Room Air 01/14/25 03:11 Oxygen Flow Rate 0 01/14/25 03:11 Pain Level 3 01/14/25 03:16 Procedure Laceration Laceration 1: Date of Procedure: 01/14/25 Time of procedure: 05:05 Provider that performed the procedure: Bryce Carvajal Standard Time Out Performed: No Patient Consented: Verbally Site: lip Description: linear Depth: simple, single layer Local anesthetic: Lidocaine 1% and with Epi Amount of anesthesia used (mL): 3 Pre-repair:: wound explored, irrigated extensively and deep structures intact Skin layer closed with: chromic gut Suture size: 6-0 Number of sutures:: 3 Technique: simple, interrupted Medical Decision Making This is a pleasant 64-year-old male whose tetanus is up-to-date who presents today for evaluation of laceration. The patient was at work when something fell from an upper shelf that he was pulling off and it hit him in his upper lip. He developed a laceration and came to the ER for further assessment. No other trauma to the rest of his face. No loss of consciousness, no blood thinner use. Exam demonstrates a 2 cm laceration just superior to the vermilion border of the upper lip midline to the face. No through and through laceration, no dental damage. Tetanus is up-to-date. 3 simple interrupted 6-0 Chromic Gut sutures were placed. Patient tolerated this well. Patient will be discharged home. Discussed red flags which to return. I have extensively reviewed the treatment plan and discharge instructions with the patient. I have addressed all patient concerns at this time. The patient was made aware of what symptoms to monitor for that would warrant a return to the emergency department. Discussed the plan with the patient, they demonstrate verbal understanding and agreement with our assessment and plan at this time. The documentation in this chart was dictated using [employer] dictation software. Please excuse any dictation errors. PFSH All Active Problems (Updated 01/14/25 @ 03:35 by Bryce Carvajal DO) Laceration of lip (Acute) Hematoma (Acute) Lipoma (Acute) Family history of ischemic heart disease (Acute) Muscle strain (Acute) Medical History Sleeping difficulty Testicular pain Bradycardia Situational anxiety Hyperlipidemia Hypertension Left inguinal hernia Spermatocele of epididymis, single s/p surgery Surgical History Hx of lipoma (~06/2023) Exe on L shoulder S/P left inguinal hernia repair (~02/09/21) S/P right inguinal hernia repair at age 5- no mesh History of testicular surgery removal of left speramtocele Family History Brother Cancer lung cancer at age 21 Paternal Grandfather Lung cancer Maternal Grandfather Lung cancer Father Myocardial infarction Mother Stroke Social History Smoking/Tobacco Use Status: Current every day Tobacco Type: smokeless tobacco Smoking risk assessment performed?: Yes Alcohol Intake: current Alcohol Intake frequency: a few times a week Alcohol type: beer Drug use: Occasionally Substance use type: marijuana Details: smoked marijuana 1 week ago. Chewed tobacco 06/25/23 Household members: none Housing: house Do you feel safe at home: Yes Additional Social history: lives alone
== END 2025-01-14 05:51 | disposition home or self-care (01) ==
PROVIDERS: Emergency Provider Student in an Organized Health Care Education/Training Program
DX: S01.511A Laceration without foreign body of lip, initial encounter (principal); X58.XXXA Exposure to other specified factors, initial encounter
CPT/HCPCS: 12011; J2004